=== PATIENT | male | born 1985 | race Caucasian/White ===

== ENCOUNTER 2018-02-24 15:11 | Emergency (ER) | payer BC ==
[~2018-02-24] VITALS: Ht 185.4 cm; Wt 86.4 kg
[~2018-02-24 15:11] MED LIST: CLEOCIN HCL75 MG; ZOLOFT 100MG100 MG
[2018-02-24 15:18] VITALS: TEMP 97.8
[2018-02-24 16:00] LABS: COLLECTION METHOD CLEAN CATCH
[2018-02-24 16:11] LABS: MUCOUS Present /lpf; PH 8 (5-8); SQUAMOUS EPITHELIAL None Seen /hpf; URINE APPEARANCE Hazy; URINE BACTERIA None Seen /hpf; URINE BILIRUBIN Negative (NEGATIVE); URINE BLOOD 3+ (NEGATIVE); URINE COLOR Yellow; URINE GLUCOSE Negative (NEGATIVE); URINE KETONE Negative (NEGATIVE); URINE LEUKOCYTE ESTERASE Negative (NEGATIVE); URINE NITRATE Negative (NEGATIVE); URINE PROTEIN(semi-quant) 1+ (NEGATIVE); URINE RBC >50 /hpf; URINE UROBILINOGEN Negative (NEGATIVE)
[2018-02-24] MEDS ORDERED: NORCO 325 MG-51 TAB PO (16:20)
[2018-02-24] MEDS ORDERED: CIPRO 500MG TA500 MG PO (16:31)
[2018-02-24 16:47] VITALS: BP 131/74; PULSE 60
== END 2018-02-24 16:47 | disposition home or self-care (01) ==
LOC: COL.ER 15:11
PROVIDERS: Family Medicine
DX: N20.1 Calculus of ureter (principal); R31.9 Hematuria, unspecified